=== PATIENT | female | born 1995 | race Caucasian/White ===

== ENCOUNTER 2025-07-31 20:32 | Emergency (ER) | payer MEDICAID ==
[~2025-07-31] VITALS: Ht 160 cm; Wt 59.0 kg
[2025-07-31 20:50] VITALS: TEMP 98.2
[2025-07-31 21:30] LABS: PLATELET COUNT (AUTO) 304 K/uL (150-450); RED BLOOD CELL COUNT(AUTO) 4.41 MIL/uL (4.0-5.2); RED CELL DISTRIBUTION WIDTH 14.3 % (11.5-15.0); WHITE BLOOD COUNT (AUTO) 9.0 K/uL (4.3-11.0)
[2025-07-31 21:36] LABS: CALCIUM, SERUM 8.5 mg/dL (8.5-10.1); CREATININE 0.6 mg/dL (0.6-1.3); SODIUM SERUM 142.0 mmol/L (136-145); UREA NITROGEN, BLOOD 14.0 mg/dL (7-18)
[2025-07-31 22:25] VITALS: BP 122/80; O2SAT 100
== END 2025-07-31 22:26 | disposition home or self-care (01) ==
LOC: ER 20:38
DX: R20.2 Paresthesia of skin (principal); I51.9 Heart disease, unspecified; G44.89 Other headache syndrome; R00.2 Palpitations; R10.20 Pelvic and perineal pain unspecified side
CPT/HCPCS: 36415; 80048-TC; 84702-TC; 85025-TC